=== PATIENT | male | born 1980 | race Two or more races ===

== ENCOUNTER 2020-08-07 21:08 | Emergency (ER) | payer OTHER ==
[~2020-08-07] VITALS: Ht 185.4 cm; Wt 72.6 kg
[2020-08-07 21:18] VITALS: BP 144/92
--- NOTE | 2020-08-07 21:22 | NUR ---
PT WAS SEEN BY DR MAJANO
--- NOTE | 2020-08-07 21:30 | NUR ---
pt denies si/hi, seen by dr tanner. mse performed.
--- NOTE | 2020-08-07 21:32 | NUR ---
pt sarbjit from ER. dr tanner aware
--- NOTE | 2020-08-07 21:43 | NUR ---
EKG WAS NOT PERFORMED, PT FRANKLIND
== END 2020-08-07 21:43 | disposition left against medical advice (07) ==
LOC: ER 21:10
DX: Z53.21 Procedure and treatment not carried out due to patient leaving prior to being seen by health care provider (principal); F41.9 Anxiety disorder, unspecified; F32.9 Major depressive disorder, single episode, unspecified